=== PATIENT | female | born 1935 | race Caucasian/White ===

== ENCOUNTER → 2020-01-15 | Outpatient (CLI) | payer OTHER | LOC: LABNPT 15:28 | PROVIDERS: ATTEND Nurse Practitioner Family | DX: Z01.89 Encounter for other specified special examinations (principal); Z20.828 Contact with and (suspected) exposure to other viral communicable diseases | CPT/HCPCS: 84145; 87635 ==

== ENCOUNTER → 2020-03-06 | Outpatient (CLI) | payer OTHER | LOC: LABNPT 13:29 | PROVIDERS: ATTEND Nurse Practitioner Family | DX: Z20.828 Contact with and (suspected) exposure to other viral communicable diseases (principal) | CPT/HCPCS: 84145; U0002; 87635 ==